=== PATIENT | female | born 1980 | race Caucasian/White ===

== ENCOUNTER 2016-08-10 03:15 | Emergency (ER) | payer OTHER ==
[~2016-08-10] VITALS: Ht 167.6 cm; Wt 80.7 kg
[2016-08-10 03:15] VITALS: BP_SYST 132
[2016-08-10 03:44] LABS: BILIRUBIN,URINE NEGATIVE (NEGATIVE); BLOOD, URINE 1+ (NEGATIVE); CLARITY/URINE CLEAR (CLEAR); COLOR,URINE YELLOW (YELLOW); GLUCOSE,URINE NEGATIVE (NEGATIVE); KETONES,URINE NEGATIVE (NEGATIVE); LEUKOCYTE ESTERASE ,URINE NEGATIVE (NEGATIVE); NITRITE, URINE NEGATIVE (NEGATIVE); PH,URINE 6.5 (5.0-8.0); PROTEIN URINE 1+ (NEGATIVE); UROBILINOGEN,URINE 0.2 (0.2-1.0)
[2016-08-10 03:58] LABS: BACTERIA,URINE RARE /HPF (None Seen); WBC,URINE 0-3 /HPF (0-3)
[2016-08-10 04:40] VITALS: BP_SYST 136
== END 2016-08-10 04:40 | disposition home or self-care (01) ==
LOC: SED 03:15
DX: E11.649 Type 2 diabetes mellitus with hypoglycemia without coma (principal)
CPT/HCPCS: 81000-TC; 81025; 99283

== ENCOUNTER 2020-08-14 21:59 | Emergency (ER) | payer MEDICAID, MEDICARE ==
[~2020-08-14] VITALS: Ht 167.6 cm; Wt 81.6 kg
[2020-08-14 22:06] VITALS: BP_SYST 150
[2020-08-14] MEDS ORDERED: NACL 0.9% 1,000 ML IV ONE (23:15)
[2020-08-15] MEDS ORDERED: INSULIN REGULAR, HUMAN 10 UNITS/0.1 ML INJ IVP ONE (01:15)
[2020-08-15 03:06] VITALS: BP_SYST 132
== END 2020-08-15 03:06 | disposition home or self-care (01) ==
LOC: SED 21:59
DX: E11.649 Type 2 diabetes mellitus with hypoglycemia without coma (principal)
CPT/HCPCS: 36415; 82947; 82962; 96360; 99283; J7030